=== PATIENT | female | born 1975 | race Two or more races ===

== ENCOUNTER 2019-01-29 11:01 | Outpatient (CLI) | payer OTHER ==
[~2019-01-29 11:01] MED LIST: ALLEGRA ALLERG180 MG PO; FLONASE16 GM NS; GILTUSS TR TAB1 EACH PO; LEVSIN/SL0.125 MG SL; PROTONIX20 MG PO; ZITHROMAX500 MG PO; ZYRTEC10 MG PO
== END 2019-01-29 14:19 | disposition home or self-care (01) ==
LOC: LAB 11:01
DX: E03.8 Other specified hypothyroidism (principal); E55.9 Vitamin D deficiency, unspecified; Z13.1 Encounter for screening for diabetes mellitus; E78.2 Mixed hyperlipidemia; Z12.11 Encounter for screening for malignant neoplasm of colon; N95.1 Menopausal and female climacteric states; Z11.3 Encounter for screening for infections with a predominantly sexual mode of transmission; Z11.4 Encounter for screening for human immunodeficiency virus [HIV]; R00.2 Palpitations

== ENCOUNTER 2019-01-29 12:06 | Outpatient (CLI) | payer OTHER | END 2019-01-29 16:26 | disposition home or self-care (01) | LOC: MAMO-SONO 12:06 | DX: N60.19 Diffuse cystic mastopathy of unspecified breast (principal); Z12.31 Encounter for screening mammogram for malignant neoplasm of breast ==

== ENCOUNTER 2019-09-04 10:24 | Emergency (ER) | payer OTHER ==
[~2019-09-04] VITALS: Ht 157.5 cm; Wt 68.9 kg
[2019-09-04] MEDS ORDERED: MEDROLPACK PO (16:25)
[2019-09-04] MEDS ORDERED: SYMBICORT 16010.2 GM IH (16:25)
== END 2019-09-04 16:41 | disposition home or self-care (01) ==
LOC: ER 10:24
DX: J06.9 Acute upper respiratory infection, unspecified (principal); M94.0 Chondrocostal junction syndrome [Tietze]; B96.0 Mycoplasma pneumoniae [M. pneumoniae] as the cause of diseases classified elsewhere

== ENCOUNTER 2023-05-21 03:26 | Emergency (ER) | payer OTHER ==
[~2023-05-21] VITALS: Ht 157.5 cm; Wt 90.7 kg
[~2023-05-21 03:26] MED LIST changes: +MEDROLPACK PO; +SYMBICORT 16010.2 GM IH
== END 2023-05-21 10:06 | disposition home or self-care (01) ==
LOC: ER 03:26
DX: R06.02 Shortness of breath (principal); R07.9 Chest pain, unspecified; Z88.6 Allergy status to analgesic agent

== ENCOUNTER 2023-10-22 12:10 | Emergency (ER) | payer OTHER ==
[~2023-10-22] VITALS: Ht 162.6 cm; Wt 68.0 kg
[2023-10-22] MEDS ORDERED: IPRAT-ALBUT 0.5-3 ML IH (12:32)
[2023-10-22] MEDS ORDERED: ZITHROMAX500 MG PO (12:32)
[2023-10-22] MEDS ORDERED: TUSNEL LIQUID178 ML PO (12:32)
== END 2023-10-22 12:42 | disposition home or self-care (01) ==
LOC: ER 12:10
DX: R53.81 Other malaise (principal); A54.5 Gonococcal pharyngitis; B00.2 Herpesviral gingivostomatitis and pharyngotonsillitis; B08.5 Enteroviral vesicular pharyngitis; Z88.6 Allergy status to analgesic agent

== ENCOUNTER 2024-01-26 10:28 | Emergency (ER) | payer OTHER ==
[~2024-01-26] VITALS: Ht 167.6 cm; Wt 79.8 kg
[~2024-01-26 10:28] MED LIST changes: +IPRAT-ALBUT 0.5-3 ML IH; +TUSNEL LIQUID178 ML PO
== END 2024-01-26 13:52 | disposition home or self-care (01) ==
LOC: ER 10:28
DX: J00 Acute nasopharyngitis [common cold] (principal); Z88.6 Allergy status to analgesic agent; Z20.822 Contact with and (suspected) exposure to COVID-19

== ENCOUNTER → 2025-04-13 | Emergency (ER) | payer OTHER ==
[~2025-04-13] VITALS: Ht 160 cm; Wt 68.0 kg
[~2025-04-13] MED LIST changes: +AZITHROMYCIN 500 MG TABLET PO ONE; +AZITHROMYCIN 500 MG TABLET PO STA
[2025-04-13 17:24] LABS: BASO % 0.6 % (0.1-1.2); EOS % 2.2 % (0.7-7.0); HEMATOCRIT 34.9 % (34.1-44.9); HEMOGLOBIN 11.1 g/dL (11.2-15.7); LYMPH # 1.61 (1.18-3.74); LYMPH % 17.9 % (19.3-53.1); MEAN CORPUSCULAR HEMOGLOBIN 21.3 pg (25.6-32.2); NEUT % 65.7 % (34.0-71.1); PLATELET COUNT 321 K/uL (163-369); RED CELL DISTRIBUTION WIDTH 15.9 % (11.6-14.4)
[2025-04-13 17:34] LABS: MONO % 12.2 % (4.7-12.5)
[2025-04-13 17:46] LABS: COVID-19 AG NEGATIVE (NEGATIVE)
[2025-04-13 17:57] LABS: INFLUENZA A AG NEGATIVE (NEGATIVE); INFLUENZA B AG NEGATIVE (NEGATIVE)
== END | disposition home or self-care (01) ==
LOC: ER 15:01
PROVIDERS: General Practice
DX: R05.8 Other specified cough (principal); Z88.6 Allergy status to analgesic agent; Z20.822 Contact with and (suspected) exposure to COVID-19